=== PATIENT | male | born 1985 | race Caucasian/White ===

== ENCOUNTER 2018-05-27 09:12 | Inpatient (IN) | payer OTHER ==
[2018-05-27 09:35] VITALS: BMI 17.8
--- NOTE | 2018-05-27 09:57 | HP ---
CIWA Score - CIWA Score Nausea/Vomitin Muscle Tremors: 2 Anxiety: 2 Agitation: 2 Paroxysmal Sweats: 1-Minimal Palms Moist Orientation: 0-Oriented Tacttile Disturbances: 1-Very Mild Itch/Numbness Auditory Disturbances: 1-Very Mild Visual Disturbances: 0-None Headache: 2-Mild CIWA-Ar Total Score: 13 Admission ROS BHS - HPI Chief Complaint: i need help to stop drinking alcohol and marijuana Allergies/Adverse Reactions: Allergies Allergy/AdvReac Type Severity Reaction Status Date / Time Fish Containing Products Allergy Verified 05/27/18 10:03 History of Present Illness: this 33 years old male with alcohol and marijuana dependence,seeking detox, withdrawal symptom,,last detox [facility] 0n 05/25/18 not completed seizure last 05/25/18 syncope seizure on dilantin bipolar disorder no medication nicotine dependence weight loss perforated appendicitis at age of 16 [facility] [place] never been in detox before asthma history of fx of mandibles Exam Limitations: No Limitations - Ebola screening Have you traveled outside of the country in the last 21 days: No Have you had contact with anyone from an Ebola affected area: No Have you been sick,other than usual withdrawal symptoms: No Do you have a fever: No - Review of Systems Constitutional: Loss of Appetite, Malaise, Night Sweats, Changes in sleep, Weakness, Unintentional Wgt. Loss EENT: reports: Nose Congestion Respiratory: reports: No Symptoms reported Cardiac: reports: No Symptoms Reported GI: reports: Nausea, Vomiting, Abdominal cramping : reports: No Symptoms Reported Musculoskeletal: reports: Back Pain, Muscle Pain Integumentary: reports: Dryness Neuro: reports: Headache, Tremors Endocrine: reports: No Symptoms Reported Hematology: reports: No Symptoms Reported Psychiatric: reports: No Sypmtoms Reported, Judgement Intact, Mood/Affect Appropiate, Orientated x3, Agitated ( bipolar disoder) Patient History - Patient Medical History Hx Anemia: No Hx Asthma: No Hx Chronic Obstructive Pulmonary Disease (COPD): No Hx Cancer: No Hx Cardiac Disorders: No Hx Congestive Heart Failure: No Hx Hypertension: No Hx Hypercholesterolemia: No Hx Pacemaker: No HX Cerebrovascular Accident: No Hx Seizures: Yes (last 05/25/18) Hx Dementia: No Hx Diabetes: No Hx Gastrointestinal Disorders: No Hx Liver Disease: No Hx Genitourinary Disorders: Yes (perforated appendicitis at age of 16) Hx Sexually Transmitted Disorders: No Hx Renal Disease (ESRD): No Hx Thyroid Disease: No Hx Human Immunodeficiency Virus (HIV): No (last 05/2018 negative) Hx Hepatitis C: No Hx Depression: No Hx Suicide Attempt: No Hx Bipolar Disorder: Yes (no med) Hx Schizophrenia: No Other Medical History: no hpmicidal,no suicidal - Patient Surgical History Past Surgical History: Yes Hx Abdominal Surgery: Yes (perforated appendicitis at age of 16 ) Other Surgical History: fx of manbies at age of 23 - PPD History Previous Implant?: Yes Documented Results: Negative w/o proof Implanted On Prior R Admission?: No PPD to be Administered?: Yes - Smoking Cessation Smoking history: Current every day smoker Have you smoked in the past 12 months: Yes Aproximately how many cigarettes per day: 3 Hx Chewing Tobacco Use: No Initiated information on smoking cessation: Yes 'Breaking Loose' booklet given: 05/27/18 - Substance & Tx. History Hx Alcohol Use: Yes Hx Substance Use: Yes Substance Use Type: Alcohol, Marijuana Hx Substance Use Treatment: No - Substances Abused Alcohol Route: Oral Frequency: Daily Amount used: 6 bottles of cognac Age of first use: 6 Date of Last Use: 05/25/18 Marijuana/Hashish Route: Smoking Frequency: Daily Amount used: 3.5 ounces Age of first use: 6 Date of Last Use: 05/25/18 Family Disease History - Family Disease History Family Disease History: Other: Mother (alcohol) Admission Physical Exam BHS - Vital Signs Vital Signs: Vital Signs - 24 hr 05/27/18 09:31 Temperature 97.5 F L Pulse Rate 77 Respiratory 18 Rate Blood Pressure 114/78 - Physical General Appearance: Yes: Moderate Distress, Tremorous, Irritable, Sweating, Anxious HEENTM: Yes: Normal ENT Inspection, RADHA, Pharynx Normal Respiratory: Yes: Lungs Clear, Normal Breath Sounds, No Respiratory Distress Neck: Yes: Within Normal Limits, Supple, Trachea in good position Breast: Yes: Within Normal Limits Cardiology: Yes: Within Normal Limits, Regular Rhythm, Regular Rate, S1, S2 Abdominal: Yes: Within Normal Limits, Normal Bowel Sounds, Non Tender, Flat, Soft, Surgical Scar Genitourinary: Yes: Within Normal Limits Musculoskeletal: Yes: Back pain, Muscle Pain Extremities: Yes: Tremors Neurological: Yes: technical engineer II-XII NML intact, Fully Oriented, Alert, Motor Strength 5/5 Integumentary: Yes: Dry Lymphatic: Yes: Within Normal Limits - Diagnostic (1) Alcohol dependence with uncomplicated withdrawal Current Visit: Yes Status: Acute (2) Seizure Current Visit: Yes Status: Acute (3) Syncope Current Visit: Yes Status: Acute (4) Weight loss Current Visit: Yes Status: Acute (5) Dehydration Current Visit: Yes Status: Acute (6) Bipolar disorder Current Visit: Yes Status: Acute (7) Perforated appendicitis Current Visit: Yes Status: Acute (8) Mandibular fracture Current Visit: Yes Status: Acute (9) Asthma Current Visit: Yes Status: Acute (10) Cannabis dependence Current Visit: Yes Status: Acute Cleared for Admission S - Detox or Rehab [facility] Level of Care: Medically Managed Detox Regimen/Protocol: Librium [facility] Breath Alcohol Content Breath Alcohol Content: 0 Urine Drug Screen - Results Drug Screen Negative: No Urine Drug Screen Results: THC-Marijuana, BZO-Benzodiazepines
[2018-05-27] MEDS ORDERED: MAG HYDROX/AL HYDROX/SIMETH 30 ML UNIT-DOSE CUP PO PRN (10:13)
[2018-05-27] MEDS ORDERED: chlordiazePOXIDE HCL 25 MG CAPSULE PO PRN (10:13)
[2018-05-27] MEDS ORDERED: LOPERAMIDE HCL 2 MG CAPSULE PO PRN (10:13)
[2018-05-27] MEDS ORDERED: IBUPROFEN 400 MG TABLET (FP) PO PRN (10:13)
[2018-05-27] MEDS ORDERED: MAGNESIUM CITRATE 300 ML BOTTLE PO PRN (10:13)
[2018-05-27] MEDS ORDERED: hydrOXYzine PAMOATE 25 MG CAPSULE (FP) PO PRN (10:13)
[2018-05-27] MEDS ORDERED: MENTHOL/PHENOL 1 EACH UD MM PRN (10:13)
[2018-05-27] MEDS ORDERED: ACETAMINOPHEN 325 MG TABLET (FP) PO PRN (10:13)
[2018-05-27] MEDS ORDERED: MAGNESIUM HYDROX 2400MG/30ML ORAL SUSPENSION 30 ML CUP PO PRN (10:13)
[2018-05-27] MEDS ORDERED: guaiFENesin/D-METHORPHAN HB 10 ML UNIT-DOSE CUPS PO PRN (10:13)
[2018-05-27] MEDS ORDERED: P-EPHED 60MG/TRIPROLIDI 2.5MG TABLET PO PRN (10:13)
[2018-05-27] MEDS ORDERED: ALBUTEROL SO4 8 GM HFA INHALER IH PRN (10:20)
[2018-05-27] MEDS: PHENYTOIN NA EXTENDED 100 MG CAPSULE (FP) PO SCH (14:48)
[2018-05-27] MEDS: chlordiazePOXIDE HCL 25 MG CAPSULE PO SCH ×2 (17:55→22:10)
[2018-05-27] MEDS: THIAMINE HCL 100 MG TABLET (FP) PO SCH (22:10)
[2018-05-27] MEDS: MELATONIN 5 MG TABLETS PO PRN (22:11)
[2018-05-28] MEDS: chlordiazePOXIDE HCL 25 MG CAPSULE PO SCH ×4 (05:29→22:18)
[2018-05-28 10:28] LABS: HEMATOCRIT 40.3 % (35.4-49); HEMOGLOBIN 13.2 GM/dL (11.7-16.9); MCH 31.6 pg (25.7-33.7); MCHC 32.7 g/dl (32.0-35.9); MEAN CELL VOLUME 96.6 fl (80-96); MEAN PLT VOLUME 9.1 fl (7.5-11.1); PLATELET COUNT 316 K/MM3 (134-434); RBC 4.17 M/mm3 (4.00-5.60); RDW 13.8 % (11.9-15.9); WHITE BLOOD COUNT 7.7 K/mm3 (4.0-10.0)
[2018-05-28] MEDS: PRENATAL VITAMINS W/ FOLIC ACID TABLET (FP) PO SCH (10:35)
[2018-05-28] MEDS: PHENYTOIN NA EXTENDED 100 MG CAPSULE (FP) PO SCH (10:35)
--- NOTE | 2018-05-28 10:58 | CONSULT ---
[facility] Psychiatric Consult - Data Date of interview: 05/28/18 Admission source: [facility] Identifying data: Patient is a 33 year old single male, father of five, unemployed, and currently homeless. This is patient's first admission to detox at [facility]. Patient admitted to for alcohol dependence. Substance Abuse History: Smoking Cessation. Smoking history: Current every day smoker. Have you smoked in the past 12 months: Yes. Aproximately how many cigarettes per day: 3. Hx Chewing Tobacco Use: No. Initiated information on smoking cessation: Yes. 'Breaking Loose' booklet given: 05/27/18. - Substance & Tx. History. Hx Alcohol Use: Yes. Hx Substance Use: Yes. Substance Use Type : Alcohol, Marijuana. Hx Substance Use Treatment: No Medical History: perforated appendicitis at age of 16, fx of manbies at age of 23 Psychiatric History: Patient denies h/o psychiatric hospitalizations, outpatient care, and suicide attempt. Physical/Sexual Abuse/Trauma History: denies. Mental Status Exam - Mental Status Exam Alert and Oriented to: Time, Place, Person Cognitive Function: Good Patient Appearance: Unkempt Mood: Euthymic Affect: Mood Congruent Patient Behavior: Guarded, Cooperative Speech Pattern: Appropriate Voice Loudness: Moderately Soft/Quiet Thought Process: Intact, Goal Oriented Thought Disorder: Not Present Hallucinations: Denies Suicidal Ideation: Denies Homicidal Ideation: Denies Insight/Judgement: Poor Sleep: Fair Appetite: Fair Muscle strength/Tone: Normal Gait/Station: Normal Psychiatric Findings - Problem List ([place] 1, 2,3) (1) Alcohol dependence with uncomplicated withdrawal Current Visit: Yes Status: Acute - Initial Treatment Plan Initial Treatment Plan: Psychoeducation provided. Detoxification in progress. Observation.
[2018-05-28 11:25] LABS: ALBUMIN 4.2 g/dl (3.4-5.0); ALK PHOS 108 U/L (45-117); ANION GAP 11 MMOL/L (8-16); BILIRUBIN,TOTAL 0.3 mg/dL (0.2-1); BLOOD UREA NITROGEN 18 mg/dL (7-18); CHLORIDE 103 mmol/L (98-107); CO2 26 mmol/L (21-32); CREATININE 0.7 mg/dL (0.55-1.3); GLUCOSE,RANDOM 142 mg/dL (74-106); POTASSIUM 4.3 mmol/L (3.5-5.1); SGOT/AST 26 U/L (15-37); SGPT/ALT 38 U/L (13-61); SODIUM 140 mmol/L (136-145); TOT PROT 7.4 g/dl (6.4-8.2)
[2018-05-28] MEDS ORDERED: FLU VACCINE QUAD 60 MCG/0.5 ML (MDV 18-19) IM ONE (12:00)
--- NOTE | 2018-05-28 12:34 | PN ---
S CIWA - CIWA Score Nausea/Vomitin-No Nausea/No Vomiting Muscle Tremors: 2 Anxiety: 4-Mod. Anxious/Guarded Agitation: 3 Paroxysmal Sweats: No Perspiration Orientation: 0-Oriented Tacttile Disturbances: 0-None Auditory Disturbances: 0-None Visual Disturbances: 0-None Headache: 0-None Present CIWA-Ar Total Score: 9 BHS Progress Note (SOAP) Subjective: PATIENT C/O SHAKES, ANXIETY AND RESTLESSNESS. Objective: 05/28/18 12:34 Laboratory Tests 05/27/18 05/27/18 05/28/18 10:30 10:30 05:30 WBC 7.7 RBC 4.17 Hgb 13.2 Hct 40.3 MCV 96.6 H MCH 31.6 MCHC 32.7 RDW 13.8 Plt Count 316 MPV 9.1 Sodium Potassium Chloride Carbon Dioxide Anion Gap BUN Creatinine Creat Clearance w eGFR Random Glucose Calcium Total Bilirubin AST ALT Alkaline Phosphatase Total Protein Albumin Phenytoin 11.0 RPR Titer HIV 1&2 Antibody Screen Negative HIV P24 Antigen Negative 05/28/18 05/28/18 05:30 05:30 WBC RBC Hgb Hct MCV MCH MCHC RDW Plt Count MPV Sodium 140 Potassium 4.3 Chloride 103 Carbon Dioxide 26 Anion Gap 11 BUN 18 Creatinine 0.7 Creat Clearance w eGFR > 60 Random Glucose 142 H Calcium 9.0 Total Bilirubin 0.3 AST 26 ALT 38 Alkaline Phosphatase 108 Total Protein 7.4 Albumin 4.2 Phenytoin RPR Titer Nonreactive HIV 1&2 Antibody Screen HIV P24 Antigen Vital Signs Temperature 98.2 F 05/28/18 09:37 Pulse Rate 84 05/28/18 09:37 Respiratory Rate 19 05/28/18 09:37 Blood Pressure 129/80 05/28/18 09:37 O2 Sat by Pulse Oximetry (%) SKIN WARM AND DRY AMB AD MARISOL ALERT AND ORIENTED X 3 EXT +TREMORS, FULL ROM Assessment: 05/28/18 12:35 WITHDRAWAL SX Plan: CONTINUE DETOX ORDERED ENCOURAGE ORAL FLUIDS CONTINUE TO MONITOR CLINICALLY
--- NOTE | 2018-05-28 13:01 | EKG ---
Test Reason : Blood Pressure : / mmHG Vent. Rate : 092 BPM Atrial Rate : 092 BPM P-R Int : 136 ms QRS Dur : 078 ms QT Int : 368 ms P-R-T Axes : 077 072 072 degrees QTc Int : 455 ms NORMAL SINUS RHYTHM NORMAL ECG Confirmed by MD BLAS, LY ([id number]) on 05/28/2018 1:00:38 PM Referred By: Confirmed By:LY ODONNELL MD
[2018-05-28 16:35] LABS: URINE APPEARANCE CLEAR; URINE BILIRUBIN NEGATIVE (<2.0 mg/dL); URINE COLOR YELLOW; URINE GLUCOSE (UA) NEGATIVE (NEGATIVE); URINE KETONE NEGATIVE (NEGATIVE); URINE LEUK ESTERASE NEGATIVE (NEGATIVE); URINE NITRITE NEGATIVE (NEGATIVE); URINE PROTEIN NEGATIVE (NEGATIVE); URINE UROBILINOGEN NEGATIVE mg/dL (0.2-1.0)
[2018-05-28] MEDS: MELATONIN 5 MG TABLETS PO PRN (22:18)
[2018-05-28] MEDS: THIAMINE HCL 100 MG TABLET (FP) PO SCH (22:18)
--- NOTE | 2018-05-28 22:57 | PN ---
[facility] Progress Note Note: Received report from RN that the client is c/o of chest pain. Pt. assessed at the bedside. He reports burning, epigastric pain that started after taking Librium at 22:18. Reports pain is 3/10. Denies pressure, heaviness, tightness, radiating pain, dyspnea, nausea/vomiting, diaphoresis or palpitations. VS: 124/79, : 81, T. 97.7. HR regular rate and rhythm. Results of stat EKG: NSR. At the completion of the assessment, Pt. reported pain had resolved. . Plan: Has Mylanta PRN, Zantact ordered
[2018-05-29] MEDS: chlordiazePOXIDE HCL 25 MG CAPSULE PO SCH ×2 (06:16→10:41)
[2018-05-29] MEDS: RANITIDINE HCL 150 MG TABLET (FP) PO SCH (10:41)
[2018-05-29] MEDS: PRENATAL VITAMINS W/ FOLIC ACID TABLET (FP) PO SCH (10:41)
[2018-05-29] MEDS: PHENYTOIN NA EXTENDED 100 MG CAPSULE (FP) PO SCH (10:41)
--- NOTE | 2018-05-29 11:29 | EKG ---
Test Reason : Blood Pressure : / mmHG Vent. Rate : 070 BPM Atrial Rate : 070 BPM P-R Int : 156 ms QRS Dur : 092 ms QT Int : 400 ms P-R-T Axes : 087 080 078 degrees QTc Int : 432 ms NORMAL SINUS RHYTHM POSSIBLE LATERAL INFARCT , AGE UNDETERMINED ABNORMAL ECG WHEN COMPARED WITH ECG OF 27-MAY-2018 14:04, NO SIGNIFICANT CHANGE WAS FOUND Confirmed by CHELI MACIAS, CHUCHO ([id number]) on 05/29/2018 11:28:47 AM Referred By: Confirmed By:CHUCHO BOWER MD
--- NOTE | 2018-05-29 12:16 | PN ---
S CIWA - CIWA Score Nausea/Vomitin-Mild Nausea/No Vomiting Muscle Tremors: 2 Anxiety: 1-Mildly Anxious Agitation: 1-Slight > Activity Paroxysmal Sweats: 2 Orientation: 0-Oriented Tacttile Disturbances: 1-Very Mild Itch/Numbness Auditory Disturbances: 0-None Visual Disturbances: 0-None Headache: 0-None Present CIWA-Ar Total Score: 8 BHS Progress Note (SOAP) Subjective: INTERRUPTED SLEEP, MILD SWEATS, HEMORRHOIDS Objective: 05/29/18 12:10 Vital Signs Temperature 98.6 F 05/29/18 09:28 Pulse Rate 73 05/29/18 09:28 Respiratory Rate 18 05/29/18 09:28 Blood Pressure 111/77 05/29/18 09:28 O2 Sat by Pulse Oximetry (%) Laboratory Tests 05/27/18 05/27/18 05/28/18 10:30 10:30 05:30 WBC 7.7 RBC 4.17 Hgb 13.2 Hct 40.3 MCV 96.6 H MCH 31.6 MCHC 32.7 RDW 13.8 Plt Count 316 MPV 9.1 Sodium Potassium Chloride Carbon Dioxide Anion Gap BUN Creatinine Creat Clearance w eGFR Random Glucose Calcium Total Bilirubin AST ALT Alkaline Phosphatase Total Protein Albumin Urine Color Urine Appearance Urine pH Ur Specific [place] Urine Protein Urine Glucose (UA) Urine Ketones Urine Blood Urine Nitrite Urine Bilirubin Urine Urobilinogen Ur Leukocyte Esterase Phenytoin 11.0 RPR Titer HIV 1&2 Antibody Screen Negative HIV P24 Antigen Negative 05/28/18 05/28/18 05/28/18 05:30 05:30 10:45 WBC RBC Hgb Hct MCV MCH MCHC RDW Plt Count MPV Sodium 140 Potassium 4.3 Chloride 103 Carbon Dioxide 26 Anion Gap 11 BUN 18 Creatinine 0.7 Creat Clearance w eGFR > 60 Random Glucose 142 H Calcium 9.0 Total Bilirubin 0.3 AST 26 ALT 38 Alkaline Phosphatase 108 Total Protein 7.4 Albumin 4.2 Urine Color Yellow Urine Appearance Clear Urine pH 6.0 Ur Specific [place] 1.019 Urine Protein Negative Urine Glucose (UA) Negative Urine Ketones Negative Urine Blood Negative Urine Nitrite Negative Urine Bilirubin Negative Urine Urobilinogen Negative Ur Leukocyte Esterase Negative Phenytoin RPR Titer Nonreactive HIV 1&2 Antibody Screen HIV P24 Antigen PT AOX3 IN NAD AMBULATING Assessment: 05/29/18 12:11 WITHDRAWAL SX'S Plan: CONT. DETOX INCREASE FLUIDS ANUSOL CREAM 2.5%
[2018-05-29] MEDS: chlordiazePOXIDE 5 MG CAPSULE PO SCH ×2 (17:58→22:08)
[2018-05-29] MEDS: THIAMINE HCL 100 MG TABLET (FP) PO SCH (22:10)
[2018-05-29] MEDS: MELATONIN 5 MG TABLETS PO PRN (22:10)
[2018-05-29] MEDS: HYDROCORTISONE 2.5% TOPICAL CREAM 30 GM TUBE TP SCH (22:42)
[2018-05-30] MEDS: chlordiazePOXIDE 5 MG CAPSULE PO SCH ×2 (06:06→10:38)
[2018-05-30] MEDS: HYDROCORTISONE 2.5% TOPICAL CREAM 30 GM TUBE TP SCH ×2 (10:38→22:05)
[2018-05-30] MEDS: RANITIDINE HCL 150 MG TABLET (FP) PO SCH (10:38)
[2018-05-30] MEDS: PHENYTOIN NA EXTENDED 100 MG CAPSULE (FP) PO SCH (10:38)
[2018-05-30] MEDS: PRENATAL VITAMINS W/ FOLIC ACID TABLET (FP) PO SCH (10:38)
--- NOTE | 2018-05-30 12:56 | PN ---
BHS Progress Note (SOAP) Subjective: feeling better less sweat no tremor no gi idstress Objective: 05/30/18 12:57 Vital Signs Temperature 98.1 F 05/30/18 07:11 Pulse Rate 69 05/30/18 09:44 Respiratory Rate 20 05/30/18 09:44 Blood Pressure 117/64 05/30/18 09:44 O2 Sat by Pulse Oximetry (%) Laboratory Last Values WBC 7.7 K/mm3 (4.0-10.0) 05/28/18 05:30 RBC 4.17 M/mm3 (4.00-5.60) 05/28/18 05:30 Hgb 13.2 GM/dL (11.7-16.9) 05/28/18 05:30 Hct 40.3 % (35.4-49) 05/28/18 05:30 MCV 96.6 fl (80-96) H 05/28/18 05:30 MCH 31.6 pg (25.7-33.7) 05/28/18 05:30 MCHC 32.7 g/dl (32.0-35.9) 05/28/18 05:30 RDW 13.8 % (11.9-15.9) 05/28/18 05:30 Plt Count 316 K/MM3 (134-434) 05/28/18 05:30 MPV 9.1 fl (7.5-11.1) 05/28/18 05:30 Sodium 140 mmol/L (136-145) 05/28/18 05:30 Potassium 4.3 mmol/L (3.5-5.1) 05/28/18 05:30 Chloride 103 mmol/L (98-107) 05/28/18 05:30 Carbon Dioxide 26 mmol/L (21-32) 05/28/18 05:30 Anion Gap 11 MMOL/L (8-16) 05/28/18 05:30 BUN 18 mg/dL (7-18) 05/28/18 05:30 Creatinine 0.7 mg/dL (0.55-1.3) 05/28/18 05:30 Creat Clearance w eGFR > 60 (>60) 05/28/18 05:30 Random Glucose 142 mg/dL (74-106) H 05/28/18 05:30 Calcium 9.0 mg/dL (8.5-10.1) 05/28/18 05:30 Total Bilirubin 0.3 mg/dL (0.2-1) 05/28/18 05:30 AST 26 U/L (15-37) 05/28/18 05:30 ALT 38 U/L (13-61) 05/28/18 05:30 Alkaline Phosphatase 108 U/L (45-117) 05/28/18 05:30 Total Protein 7.4 g/dl (6.4-8.2) 05/28/18 05:30 Albumin 4.2 g/dl (3.4-5.0) 05/28/18 05:30 Urine Color Yellow 05/28/18 10:45 Urine Appearance Clear 05/28/18 10:45 Urine pH 6.0 (5.0-8.0) 05/28/18 10:45 Ur Specific [place] 1.019 (1.010-1.035) 05/28/18 10:45 Urine Protein Negative (NEGATIVE) 05/28/18 10:45 Urine Glucose (UA) Negative (NEGATIVE) 05/28/18 10:45 Urine Ketones Negative (NEGATIVE) 05/28/18 10:45 Urine Blood Negative (NEGATIVE) 05/28/18 10:45 Urine Nitrite Negative (NEGATIVE) 05/28/18 10:45 Urine Bilirubin Negative (<2.0 mg/dL) 05/28/18 10:45 Urine Urobilinogen Negative mg/dL (0.2-1.0) 05/28/18 10:45 Ur Leukocyte Esterase Negative (NEGATIVE) 05/28/18 10:45 Phenytoin 11.0 ug/ml (10.0-20.0) 05/27/18 10:30 RPR Titer Nonreactive (NONREACTIVE) 05/28/18 05:30 HIV 1&2 Antibody Screen Negative 05/27/18 10:30 HIV P24 Antigen Negative 05/27/18 10:30 lab noted Assessment: 05/30/18 12:57 mild withdrawal sx Plan: medically supervised detox
[2018-05-30] MEDS: chlordiazePOXIDE HCL 10 MG CAPSULE PO SCH ×2 (17:20→22:05)
[2018-05-30] MEDS: THIAMINE HCL 100 MG TABLET (FP) PO SCH (22:05)
[2018-05-31] MEDS: chlordiazePOXIDE HCL 10 MG CAPSULE PO SCH ×2 (05:56→10:11)
--- NOTE | 2018-05-31 09:07 | DS ---
[facility] Detox Discharge Summary Admission Date: 05/27/18 Discharge Date: 05/31/18 - History Present History: Alcohol Dependence, Cannabis Dependence - Physical Exam Results Vital Signs: Vital Signs Temperature 97.5 F L 05/31/18 06:00 Pulse Rate 73 05/31/18 06:00 Respiratory Rate 16 05/31/18 06:00 Blood Pressure 113/67 05/31/18 06:00 O2 Sat by Pulse Oximetry (%) - Treatment Hospital Course: Detox Protocol Followed, Detoxed Safely, Responded well, Discharged Condition Good, Rehab Referral Accepted - Medication Discharge Medications: Ambulatory Orders Albuterol Sulfate Inhaler - [Ventolin HFA Inhaler -] 2 puff IH Q4H PRN #1 inhaler 05/30/18 Phenytoin Na Extended [Dilantin -] 400 mg PO DAILY #30 capsule 05/30/18 - Diagnosis (1) Alcohol dependence with uncomplicated withdrawal Current Visit: Yes Status: Chronic (2) Asthma Current Visit: Yes Status: Chronic Qualifiers: Asthma severity: mild Asthma persistence: unspecified Asthma complication type: uncomplicated Qualified Code(s): J45.909 - Unspecified asthma, uncomplicated (3) Bipolar disorder Current Visit: Yes Status: Acute (4) Cannabis dependence Current Visit: Yes Status: Chronic (5) Dehydration Current Visit: Yes Status: Acute (6) Mandibular fracture Current Visit: Yes Status: Acute (7) Seizure Current Visit: Yes Status: Acute (8) Syncope Current Visit: No Status: Suspected Qualifiers: Syncope type: unspecified Qualified Code(s): R55 - Syncope and collapse (9) Weight loss Current Visit: Yes Status: Acute - AMA Did Patient Leave Against Medical Advice: No (referred to bx atc)
[2018-05-31 09:18] VITALS: BP 129/79; PULSE 85; TEMP 96.1
[2018-05-31] MEDS: PRENATAL VITAMINS W/ FOLIC ACID TABLET (FP) PO SCH (10:11)
[2018-05-31] MEDS: PHENYTOIN NA EXTENDED 100 MG CAPSULE (FP) PO SCH (10:11)
[2018-05-31] MEDS: RANITIDINE HCL 150 MG TABLET (FP) PO SCH (10:13)
== END 2018-05-31 11:25 | disposition home or self-care (01) | DRG 775 ==
LOC: YASAS 09:12 → Y6N 12:55
PROC: HZ2ZZZZ Detoxification Services for Substance Abuse Treatment (ICD-10-PCS; principal; 2018-05-27)
DX: F10.230 Alcohol dependence with withdrawal, uncomplicated (principal); F12.20 Cannabis dependence, uncomplicated; F31.9 Bipolar disorder, unspecified; E86.0 Dehydration; J45.909 Unspecified asthma, uncomplicated; R56.9 Unspecified convulsions; R55 Syncope and collapse; R63.4 Abnormal weight loss; Z68.1 Body mass index [BMI] 19.9 or less, adult; Z87.81 Personal history of (healed) traumatic fracture
CPT/HCPCS: 36415; 80053; 80185; 81003; 85027; 86593; 87389; 90688; 93005; 93010; G0008